=== PATIENT | male | born 1940 | race Caucasian/White ===

== ENCOUNTER → 2020-10-20 | Day surgery (SDC) | payer MEDICARE ==
[~2020-10-20] MED LIST: COZAAR100 MG PO; DAILY VALUE1 EACH PO; ELAVIL50 MG PO; LIPITOR 10MG TA10 MG PO; NORVASC5 MG PO
[2020-10-20 07:38] LABS: HCT 44.4 % (42.0-52.0); HGB 15.6 g/dl (13.2-18.0); MCH 33.9 pg (25.0-31.0); MCHC 35.1 g/dL (32.0-36.0); MCV 96.5 fL (78.0-100.0); MPV 9.4 fL (6.0-9.5); RBC 4.6 M/uL (4.70-6.00); RDW 13.1 % (11.5-14.0); WBC 6.2 K/uL (4.0-10.5)
[2020-10-20 08:02] LABS: ALBUMIN 3.8 g/dL (3.4-5.0); BILIRUBIN - TOTAL 0.5 mg/dL (0.2-1.0); BUN/CREAT RATIO (CALC) 16.3 RATIO; CREATININE 0.98 mg/dL (0.67-1.17); GLOBULIN (CALCULATION) 4.5 g/dL; TOTAL PROTEIN 8.3 g/dL (6.4-8.2)
== END | disposition home or self-care (01) ==
LOC: FAS 06:55
PROVIDERS: Surgery
DX: R10.11 Right upper quadrant pain (principal); R13.10 Dysphagia, unspecified
CPT/HCPCS: 36415; 80053; J1610; J2704; J7120

== ENCOUNTER → 2021-01-12 | Day surgery (SDC) | payer MEDICARE ==
[~2021-01-12] VITALS: Ht 172.7 cm; Wt 83.2 kg
== END | disposition home or self-care (01) ==
LOC: FAS 12:28
DX: H26.492 Other secondary cataract, left eye (principal); H25.811 Combined forms of age-related cataract, right eye; I10 Essential (primary) hypertension